=== PATIENT | female | born 1975 | race Caucasian/White ===

== ENCOUNTER → 2016-07-29 | Outpatient (CLI) | payer OTHER | LOC: EXRD 10:48 | DX: S62.609A Fracture of unspecified phalanx of unspecified finger, initial encounter for closed fracture (principal) | CPT/HCPCS: 73130 ==

== ENCOUNTER 2016-08-16 10:10 | Emergency (ER) | payer OTHER | END 2016-08-16 11:04 | disposition left against medical advice (07) | LOC: ER1 10:10 | DX: Z53.21 Procedure and treatment not carried out due to patient leaving prior to being seen by health care provider (principal) ==

== ENCOUNTER 2016-08-16 16:01 | Emergency (ER) | payer OTHER | END 2016-08-16 17:18 | disposition home or self-care (01) | LOC: ER1 16:01 | DX: S60.222A Contusion of left hand, initial encounter (principal); F17.210 Nicotine dependence, cigarettes, uncomplicated; W18.30XA Fall on same level, unspecified, initial encounter; Y92.007 Garden or yard of unspecified non-institutional (private) residence as the place of occurrence of the external cause | CPT/HCPCS: 73130; 99283 ==

== ENCOUNTER 2016-09-08 21:43 | Emergency (ER) | payer OTHER | END 2016-09-08 22:43 | disposition left against medical advice (07) | LOC: ER1 21:43 | DX: Z53.21 Procedure and treatment not carried out due to patient leaving prior to being seen by health care provider (principal) ==

== ENCOUNTER → 2020-08-04 | Outpatient (CLI) | payer OTHER ==
[~2020-08-04] MED LIST: EFFEXOR XR75 MG PO; PHENERGAN 12.12.5 M1 PO; PHENERGAN 25 MG25 M1 PO; PHENERGAN 25 MG25 MG PR; SUBUTEX 8 MG TAB8 MG PO
[2020-08-04 13:05] LABS: HEMOGLOBIN 15.4 gm/dl (12.3-15.3); RED BLOOD COUNT 5.25 M/UL (4.00-5.10); WHITE BLOOD COUNT 11.5 K/UL (4.5-11.0)
[2020-08-04 13:30] LABS: BUN/CREATININE RATIO 11 (0-10)
[2020-08-05 11:15] LABS: COMPLEMENT C3, SERUM 149 mg/dL (82-167); COMPLEMENT C4, SERUM 23 mg/dL (12-38); RHEUMATOID ARTHRITIS FACTOR <10.0 IU/mL (0.0-13.9)
[2020-08-06 07:11] LABS: VITAMIN D, 25-HYDROXY 12.7 ng/mL (30.0-100.0)
[2020-08-07 00:09] LABS: CCP ANTIBODIES IGG/IGA 5 units (0-19)
== END ==
LOC: LAB 10:06
PROVIDERS: Nurse Practitioner Family
DX: R76.8 Other specified abnormal immunological findings in serum (principal); M25.50 Pain in unspecified joint; D89.9 Disorder involving the immune mechanism, unspecified
CPT/HCPCS: 80053; 81001; 82550; 82570; 82728; 83520; 83540; 83550; 84156; 84439; 84443; 85025; 85652; 86140; 86160; 86200; 86431